=== PATIENT | female | born 1940 | race Caucasian/White ===

== ENCOUNTER 2016-12-11 17:42 | Emergency (ER) | payer OTHER ==
[~2016-12-11] VITALS: Ht 154.9 cm; Wt 74.7 kg
[~2016-12-11 17:42] MED LIST: ALIGN4 MG PO; ASPIR-LOW81 MG PO; B-122500 MCG RIGHT NARE; CALTRATE-600 W1 EAC1 PO; CENTRUM SILV1 TABLE1 PO; COREG12.5 M1 PO; DIOVAN160 MG PO; DIOVAN80 MG PO; KEFLEX500 MG PO; LIDODERM 5% P1 PATCH TD; LORAZEPAM0.5 MG PO; LOW DOSE ASPIRI81 MG; LOW-DOSE ASPIRI81 MG PO; NEFAZODONE HCL200 MG PO; NEURONTIN400 MG PO; NITROSTAT0.4 MG SL; NORVASC5 MG PO; PRAVASTATIN SOD40 MG PO; PRED FORTE100 DROP/5 LEFT EYE; TRAMADOL HCL50 MG PO; TYLENOL WITH C1 EACH PO; VAGIFEM10 MCG VG; VICODIN,LORT1 TABLET PO; VITAMIN D1000 INTUN PO; VOLTAREN 1% GE100 GM TP
[2016-12-11 18:54] LABS: EOSINOPHIL (%) 1.4 % (0-5); EOSINOPHIL COUNT 0.1 K/uL (0-0.3); HEMATOCRIT 35.6 % (36.0-46.0); IMMATURE GRANULOCYTE (%) 0.4 % (0.0-0.7); INSTRUMENT ABS NEUTROPHIL CT 4.9 K/uL; LYMPHOCYTE COUNT 2.1 K/uL (1.0-2.8); MCH 29.1 PG (29.0-34.0); MCHC 33.1 G/DL (30.0-36.0); MCV 87.7 FL (83-99); MONOCYTE (%) 8.5 % (3-12); MONOCYTE COUNT 0.7 K/uL (0-0.8); NEUTROPHIL (%) 62.5 % (45-76); NEUTROPHIL COUNT 4.9 K/uL (1.8-6.4); PLATELET COUNT 275 K/uL (156-360); RBC DIS.WIDTH-SD 41.5 % (39-53); RED BLOOD COUNT 4.06 M/uL (3.80-5.20); WHITE BLOOD COUNT 7.9 K/uL (4.1-10.2)
[2016-12-11 19:02] LABS: CHLORIDE 106 mEq/L (99-109); POTASSIUM 3.9 mEq/L (3.7-5.4); SODIUM 138 mEq/L (136-147)
[2016-12-11 19:04] LABS: GLUCOSE 117 mg/dL (70-99)
[2016-12-11 19:06] LABS: ANION GAP 9 MEQ/L (2-14); TOTAL BILIRUBIN 0.4 mg/dL (0.0-1.0)
[2016-12-11 19:08] LABS: ALKALINE PHOSPHATASE 60 IU/L (3-129); GFR ESTIMATE (CALCULATED) > 59 mL/min/
[2016-12-11 19:09] LABS: UREA NITROGEN (BUN) 20 mg/dL (9-23)
[2016-12-11 20:51] VITALS: BP 133/78
== END 2016-12-11 20:54 | disposition home or self-care (01) ==
LOC: EME 17:42
PROVIDERS: Emergency Medicine
DX: Z47.1 Aftercare following joint replacement surgery (principal); Z96.661 Presence of right artificial ankle joint; I10 Essential (primary) hypertension; E78.5 Hyperlipidemia, unspecified
CPT/HCPCS: 73610; 80053; 85025; 87040; 99281; 99284

== ENCOUNTER 2018-02-24 12:36 | Observation (INO) | payer OTHER ==
[~2018-02-24] VITALS: Ht 154.9 cm; Wt 83.8 kg
[2018-02-24 14:06] LABS: HEMATOCRIT 38.3 % (36.0-46.0); HEMOGLOBIN 13.4 G/DL (11.9-15.5); MCH 29.6 PG (29.0-34.0); MCV 84.5 FL (83-99); PLATELET COUNT 197 K/uL (156-360); RBC DIS.WIDTH-CV 12.6 % (11.8-14.6); RBC DIS.WIDTH-SD 38.8 % (39-53); RED BLOOD COUNT 4.53 M/uL (3.80-5.20); WHITE BLOOD COUNT 7.1 K/uL (4.1-10.2)
[2018-02-24 14:18] LABS: CHLORIDE 106 mEq/L (99-109); POTASSIUM 4.4 mEq/L (3.7-5.4); SODIUM 141 mEq/L (136-147)
[2018-02-24 14:19] LABS: GLUCOSE 102 mg/dL (70-99)
[2018-02-24 14:23] LABS: CREATININE 0.8 mg/dL (0.6-1.3); GFR ESTIMATE (CALCULATED) > 59 mL/min/
[2018-02-24 14:24] LABS: UREA NITROGEN (BUN) 19 mg/dL (9-23)
[2018-02-24 14:26] LABS: TROP-I INTERPRETATION NEGATIVE; TROPONIN-I < 0.01 ng/mL (0.0-0.30)
[2018-02-24 17:12] LABS: TROP-I INTERPRETATION NEGATIVE; TROPONIN-I < 0.01 ng/mL (0.0-0.30)
[2018-02-24] MEDS ORDERED: VALSARTAN320 MG PO (21:29)
[2018-02-24] MEDS ORDERED: NEFAZODONE HCL200 MG PO (21:30)
[2018-02-24] MEDS ORDERED: CINNAMON500 MG PO (21:32)
[2018-02-24] MEDS ORDERED: ESTRADIOL42.5 GM VG (21:32)
[2018-02-24 22:29] VITALS: BP 156/68
[2018-02-25 03:08] LABS: TROP-I INTERPRETATION NEGATIVE; TROPONIN-I < 0.01 ng/mL (0.0-0.30)
[2018-02-25 04:07] VITALS: BP 122/59
[2018-02-25 08:41] VITALS: BP 139/66
[2018-02-25] MEDS ORDERED: LOSARTAN POTAS100 MG PO (11:10)
[2018-02-25] MEDS ORDERED: ASPIR-LOW81 MG PO (11:11)
[2018-02-25 11:39] LABS: D-DIMER ELISA < 150.00 ng/mLDDU (<230)
== END 2018-02-25 13:11 | disposition home or self-care (01) ==
LOC: EME 12:36 → 4SOUTH 21:03 → EDOF 21:03 → ENRESERV 21:14 → 4SOUTH 22:04
PROVIDERS: Hospitalist; Physician Assistant
DX: R07.89 Other chest pain (principal); I10 Essential (primary) hypertension; E78.5 Hyperlipidemia, unspecified; M79.7 Fibromyalgia; M48.061 Spinal stenosis, lumbar region without neurogenic claudication; F41.9 Anxiety disorder, unspecified; F32.9 Major depressive disorder, single episode, unspecified; E66.9 Obesity, unspecified; Z68.34 Body mass index [BMI] 34.0-34.9, adult; Z90.710 Acquired absence of both cervix and uterus; Z96.651 Presence of right artificial knee joint; Z82.49 Family history of ischemic heart disease and other diseases of the circulatory system
CPT/HCPCS: 71046; 80048; 84484; 85027; 85379; 93005; 99281; 99285; G0378; J1644